=== PATIENT | male | born 1955 | race Caucasian/White ===

== ENCOUNTER 2018-10-31 10:47 | Emergency (ER) | payer BC, OTHER ==
[~2018-10-31] VITALS: Ht 167.6 cm; Wt 77.1 kg
[2018-10-31 10:57] VITALS: BP 130/78
--- NOTE | 2018-10-31 11:02 | NUR ---
PT TRIAGED AND AMBULATED TO ROOM 5 Addendum: 10/31/18 at 1103 by [email or web address] [id number]
--- NOTE | 2018-10-31 11:10 | NUR ---
PATIENT PRESENTS TO ED WITH THE CHIEF C/O VOMITING SINCE SAT. HAD 2 EPISODES OF VOMITING SINCE TUESDAY. DENIES MEDICAL HX. DENIES N/V/D AT THIS TIME. ACCORDING TO THE PT, HE ATE AND THREW UP FOOD. HAS ABD PAIN, 4/10 GENERAL. ABDOMEN SOFT, ROUND AND NON-TENDER. ACTIVE BOWEL SOUND. SKIN IS PINK/WARM/DRY; AAOX4 WITH EVEN AND STEADY GAIT. PT DENIES ANY FEVER, CP, SOB, OR COUGH AT THIS TIME. VSS; PATIENT POSITIONED FOR COMFORT; HOB ELEVATED; BEDRAILS UP X2; BED DOWN. ER MD MADE AWARE OF PT STATUS.
[2018-10-31] MEDS ORDERED: METOCLOPRAMIDE 10 MG TAB PO ONE (11:40)
[2018-10-31] MEDS ORDERED: ONDANSETRON 4 MG ODT PO ONE (11:40)
[2018-10-31] MEDS ORDERED: FAMOTIDINE 20 MG TAB PO ONE (11:40)
[2018-10-31 12:23] VITALS: BP 132/79
--- NOTE | 2018-10-31 12:23 | NUR ---
Patient discharged with v/s stable. Written and verbal after care instructions given and explained. Patient alert, oriented and verbalized understanding of instructions. Ambulatory with steady gait. All questions addressed prior to discharge. ID band removed. Patient advised to follow up with PMD. Rx of Nexium 40mg and Reglan 10mg given. Patient educated on indication of medication including possible reaction and side effects. Opportunity to ask questions provided and answered.
== END 2018-10-31 12:23 | disposition home or self-care (01) ==
LOC: MED 10:47
DX: K29.20 Alcoholic gastritis without bleeding (principal)
CPT/HCPCS: 99284; J8597; Q0162